=== PATIENT | male | born 1965 | race Caucasian/White ===

== ENCOUNTER 2021-06-26 14:59 | Emergency (ER) | payer BC ==
--- NOTE | 2021-06-26 16:05 | EDM.PDOC ---
ED HPI GENERAL MEDICAL PROBLEM - General Chief Complaint: Lower Extremity Injury/Pain Stated Complaint: HURT RT KNEE Time Seen by Provider: 06/26/21 15:08 Source of Information: Reports: Patient History Limitations: Reports: No Limitations - History of Present Illness INITIAL COMMENTS - FREE TEXT/NARRATIVE: Patient states he was out hunting. Stepped off a small ledge, twisted his leg felt a pop in his knee and now cannot extend his right knee from a flexed position. He believes he popped his patellar tendon as he can feel a little mass in the thigh above the patella and mush above the patella. No other injuries. He prefers to fly or drive back to [place] and see orthopedics there. right knee Pain Score (Numeric/FACES): 5 - Related Data Allergies Allergy/AdvReac Type Severity Reaction Status Date / Time No Known Allergies Allergy Verified 06/26/21 15:15 Home Meds: Home Meds . [No Known Home Meds] 06/26/21 [History] Past Medical History - Past Health History Medical/Surgical History: Denies Medical/Surgical History - Infectious Disease History Infectious Disease History: Reports: None Social & Family History - Family History Family Medical History: No Pertinent Family History - Tobacco Use Tobacco Use Status *Q: Never Tobacco User - Caffeine Use Caffeine Use: Reports: None - Recreational Drug Use Recreational Drug Use: No Review of Systems - Review of Systems Review Of Systems: Comprehensive ROS is negative, except as noted in HPI. ED EXAM, GENERAL - Physical Exam Exam: See Below Exam Limited By: No Limitations General Appearance: Alert Ears: Normal External Exam Nose: Normal Inspection Throat/Mouth: Normal Inspection Head: Atraumatic, Normocephalic Neck: Normal Inspection Respiratory/Chest: No Respiratory Distress, Lungs Clear, Normal Breath Sounds Cardiovascular: Normal Peripheral Pulses, Regular Rate, Rhythm, No Edema Back Exam: Normal Inspection Extremities: Limited Range of Motion (Unable to extend right the knee from a flexed position. Full range of motion of the ankle and toes on the right without hesitation or limitation.), Other (Right knee without erythema, ecchymosis, swelling, tenderness, crepitus. Anterior posterior drawer, varus valgus stress test without laxity. Patella is somewhat lax. Still weak consistency above patella with a small firm mass above that in the thigh. CMS intact to all toes pedal and posttibial p) Course - Vital Signs Text/Narrative:: Discussion with the patient and Dr. Jiménez. He needs an MRI which is not available. No orthopedics available here today. Patient prefers to get a knee immobilizer and travel back to [place] to see orthopedics there. Last Recorded V/S: Last Vital Signs Temp 36.6 C 06/26/21 15:15 Pulse 95 06/26/21 15:15 Resp 18 06/26/21 15:15 BP 143/99 H 06/26/21 15:15 Pulse Ox 96 06/26/21 15:15 - Orders/Labs/Meds Orders: Active Orders 24 hr Category Date Time Status Knee 3V Rt [CR] Stat Exams 06/26/21 15:55 Stop Req DME for Discharge [COMM] Stat Oth 06/26/21 15:57 Ordered Departure - Departure Time of Disposition: 16:07 Disposition: Home, Self-Care 01 Condition: Good Clinical Impression: Patellar tendon rupture Qualifiers: Encounter type: initial encounter Laterality: right Qualified Code(s): S86.811A - Strain of other muscle(s) and tendon(s) at lower leg level, right leg, initial encounter - Discharge Information Referrals: PCP,None [Primary Care Provider] - Additional Instructions: The following information is given to patients seen in the emergency department who are being discharged to home. This information is to outline your options for follow-up care. We provide all patients seen in our emergency department with a follow-up referral. The need for follow-up, as well as the timing and circumstances, are variable depending upon the specifics of your emergency department visit. If you don't have a primary care physician on staff, we will provide you with a referral. We always advise you to contact your personal physician following an emergency department visit to inform them of the circumstance of the visit and for follow-up with them and/or the need for any referrals to a consulting specialist. The emergency department will also refer you to a specialist when appropriate. This referral assures that you have the opportunity for follow-up care with a specialist. All of these measure are taken in an effort to provide you with optimal care, which includes your follow-up. Under all circumstances we always encourage you to contact your private physician who remains a resource for coordinating your care. When calling for follow-up care, please make the office aware that this follow-up is from your recent emergency room visit. If for any reason you are refused follow-up, please contact the [facility] Emergency Department at and asked to speak to the emergency department charge nurse. 1. Wear knee immobilizer 2. Follow-up with orthopedics upon arrival in [place] 3. Guard against blood clots. Ankle flex extend exercises every hour. Calf redness, tenderness, pain, swelling report to nearest emergency room. Sepsis Event Note (ED) - Evaluation Sepsis Screening Result: No Definite Risk - Focused Exam Vital Signs: Vital Signs Temp Pulse Resp BP Pulse Ox 06/26/21 15:15 36.6 C 95 18 143/99 H 96 - My Orders Last 24 Hours: My Active Orders 06/26/21 15:57 DME for Discharge [COMM] Stat - Assessment/Plan Last 24 Hours: My Active Orders 06/26/21 15:57 DME for Discharge [COMM] Stat
== END 2021-06-26 16:45 | disposition home or self-care (01) ==
LOC: MW.ED 14:59
DX: S86.811A Strain of other muscle(s) and tendon(s) at lower leg level, right leg, initial encounter (principal); X50.1XXA Overexertion from prolonged static or awkward postures, initial encounter
CPT/HCPCS: 99283-25